=== PATIENT | female | born 1985 | race Hispanic/Latino ===

== ENCOUNTER 2017-06-13 23:42 | Emergency (ER) | payer SELFPAY ==
--- NOTE | 2017-06-14 00:09 | C.PDOC ---
History Of Present Illness 32 yo female with cough productive of green sputum. Also with upper abd/lower chest pain. Vomited multiple times. No blood in vomitus. Time Seen by Provider: 06/13/17 23:56 Chief Complaint (Nursing): Chest Pain Onset/Duration Of Symptoms: Hrs Current Symptoms Are (Timing): Worse Pain Scale Rating Of: 5 Location Of Pain/Discomfort: Epigastric Radiation Of Pain To:: Chest Quality Of Discomfort: Burning Past Medical History Vital Signs: Last Vital Signs Temp Pulse 96 H 06/14/17 02:07 Resp 20 06/14/17 02:07 BP 106/74 06/14/17 02:07 Pulse Ox 97 06/14/17 02:07 - Medical History PMH: Bronchitis, GERD Family History: States: No Known Family Hx - Social History Hx Tobacco Use: No Hx Alcohol Use: No Hx Substance Use: No - Immunization History Hx Tetanus Toxoid Vaccination: No Hx Influenza Vaccination: No Hx Pneumococcal Vaccination: No Review Of Systems Cardiovascular: Positive for: Chest Pain Respiratory: Positive for: Cough Gastrointestinal: Positive for: Nausea, Vomiting, Abdominal Pain Genitourinary: Negative for: Dysuria, Hematuria Musculoskeletal: Positive for: Back Pain. Negative for: Neck Pain, Shoulder Pain Skin: Negative for: Rash Psych: Positive for: Anxiety Physical Exam - Physical Exam Appears: In Acute Distress Skin: Normal Color, Warm, Dry, No Pale, No Rash, No Jaundice Head: Atraumatic Oral Mucosa: Moist Tongue: Normal Appearing, No Swelling Lips: Normal Appearing Throat: Normal, No Exudate Neck: Normal, Normal ROM Chest: Symmetrical Cardiovascular: Rhythm Regular, No Edema Respiratory: Normal Breath Sounds ED Course And Treatment - Laboratory Results Result Diagrams: 06/14/17 01:44 06/14/17 01:45 O2 Sat by Pulse Oximetry: 100 Disposition - Disposition Disposition: HOME/ ROUTINE Disposition Time: 06:00 Condition: STABLE Prescriptions: Amoxicillin/Clavulanate [Augmentin 875 MG-125 MG] 1 tab PO BID #14 tab Instructions: Acute Bronchitis (ED) Forms: [facility] (German) - Clinical Impression Clinical Impression: Tracheobronchitis
[2017-06-14 00:52] LABS: AMYLASE 59 U/L (30-110); LIPASE 69 U/L (23-300)
[2017-06-14 01:16] VITALS: RESP 20
[2017-06-14 01:47] LABS: BASO # 0.1 K/uL (0.0-0.2); BASO % 0.3 % (0.0-2.0); EOS # 0.2 K/uL (0.0-0.7); EOS % 1.1 % (0.0-4.0); HEMOGLOBIN 11.2 g/dL (11.0-16.0); LYMPH # 1.1 K/uL (1.0-4.3); LYMPH % 6.5 % (20.0-40.0); MEAN CELL VOLUME 77.9 fL (81.0-99.0); MEAN CORPUSCULAR HEMOGLOBIN 25.8 pg (27.0-31.0); MEAN CORPUSCULAR HGB CONC 33.2 g/dL (33.0-37.0); MEAN PLATELET VOLUME 10.1 fL (7.2-11.7); MONO # 1.1 K/uL (0.0-0.8); MONO % 6.5 % (0.0-10.0); NEUT # 14.5 K/uL (1.8-7.0); NEUT % 85.6 % (50.0-75.0); PLATELET COUNT 278 K/uL (130-400); RBC 4.34 Mil/uL (3.80-5.20); RED CELL DISTRIBUTION WIDTH 16.7 % (11.5-14.5); WHITE BLOOD COUNT 16.9 K/uL (4.8-10.8)
[2017-06-14 01:57] LABS: ALB/GLOB RATIO 1.3 (1.0-2.1); ALBUMIN 3.7 g/dL (3.5-5.0); ALT/SGPT 14 U/L (9-52); AST/SGOT 22 U/L (14-36); BLOOD UREA NITROGEN 11 mg/dL (7-17); CALCIUM 8.1 mg/dl (8.6-10.4); GFR AFRICAN-AMERICAN > 60; GFR NON-AFRICAN AMERICAN > 60
[2017-06-14 02:08] VITALS: BP 106/74; PULSE 96
[2017-06-14 02:09] LABS: EOSINOPHIL 1 % (0-4); LYMPHOCYTE 9 % (20-40); MONOCYTE 5 % (0-10); NEUTROPHIL 84 % (50-75); PLATELET ESTIMATE NORMAL (NORMAL); REACTIVE LYMPHOCYTES 1 % (0-0); TOTAL CELLS COUNTED 100
--- NOTE | 2017-06-14 10:57 | RAD ---
HISTORY: cough COMPARISON: No prior. FINDINGS: LUNGS: The lungs are well inflated and clear. PLEURA: No significant pleural effusion identified, no pneumothorax apparent. CARDIOVASCULAR: Normal. OSSEOUS STRUCTURES: No significant abnormalities. VISUALIZED UPPER ABDOMEN: Normal. OTHER FINDINGS: None. IMPRESSION: No active pulmonary disease.
--- NOTE | 2017-06-19 12:51 | CARD ---
APPROVED REPORT EKG Measurement Heart [id number] <Conclusion> Normal sinus rhythm Normal ECG
[2017-07-05 12:18] VITALS: O2SAT 100
== END 2017-06-14 02:52 | disposition home or self-care (01) ==
LOC: C.ER 23:42
DX: J40 Bronchitis, not specified as acute or chronic (principal)
CPT/HCPCS: 71010; 80053; 82150; 83690; 85025; 93005; 96374; 96375; 96376; 99285; J2405